=== PATIENT | female | born 2005 | race African-American/Black ===

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

== ENCOUNTER 2025-07-09 15:31 | Emergency (ER) | payer MEDICAID ==
[~2025-07-09] VITALS: Ht 152.4 cm; Wt 120.0 kg
[2025-07-09 15:39] VITALS: O2SAT 100
[2025-07-09 17:42] LABS: GLUCOSE URINE NEGATIVE (NEGATIVE); KETONES URINE 3+ (NEGATIVE); LEUKOCYTE ESTERASE URINE 2+ (NEGATIVE); NITRITE URINE NEGATIVE (NEGATIVE); OCCULT BLOOD URINE 3+ (NEGATIVE); PH URINE 7.0 (4.5-8.0); PROTEIN URINE 1+ (NEGATIVE); SPECIFIC GRAVITY URINE 1.020 (1.005-1.030); UROBILINOGEN URINE 1.0 E.U./dL (0.2-1.0)
[2025-07-09 19:00] LABS: HCG SCREEN NEGATIVE
[2025-07-09] MEDS ORDERED: SULF1TAB48 MT (19:06)
[2025-07-09] MEDS ORDERED: BO1 TP (19:06)
[2025-07-09] MEDS ORDERED: METR-167 MT (19:12)
[2025-07-09 19:26] LABS: CLARITY URINE BLOODY (CLEAR); COLOR URINE BLOODY (YELLOW)
[2025-07-09 19:28] LABS: RBC URINE TNTC /hpf (0-2)
[2025-07-09 19:29] LABS: BACTERIA URINE TRACE; MUCUS URINE TRACE /lpf (< = 2+); SQUAMOUS EPITHELIAL CELL URINE 2+ /lpf (RARE/1+)
[2025-07-09 19:33] VITALS: BP 117/74; PULSE 97; RESP 18; TEMP 37; O2SAT 100
[2025-07-13 04:07] LABS: HSV TYPE 2 SPECIFIC AB IGG Non Reactive (Non Reactive)
== END 2025-07-09 20:07 | disposition home or self-care (01) ==
LOC: ER 15:31
DX: T74.21XA Adult sexual abuse, confirmed, initial encounter (principal); S90.811A Abrasion, right foot, initial encounter; N12 Tubulo-interstitial nephritis, not specified as acute or chronic; A59.9 Trichomoniasis, unspecified; J45.909 Unspecified asthma, uncomplicated; Z79.899 Other long term (current) drug therapy; X58.XXXA Exposure to other specified factors, initial encounter; Y93.89 Activity, other specified; Y92.89 Other specified places as the place of occurrence of the external cause; Y99.8 Other external cause status
CPT/HCPCS: 36415; 76830; 76856; 81003; 84703; 86592; 86695; 86696; 87210; 87491; 87591; 99284